=== PATIENT | male | born 1955 | race Caucasian/White ===

== ENCOUNTER → 2021-10-10 18:47 | Outpatient (CLI) | payer MEDICARE, SELFPAY ==
--- NOTE | 2021-10-10 18:49 | DI.RAD.S_ITS ---
PROCEDURE: XR SHOULDER RT MIN 2V INDICATIONS: injury to shoulder TECHNIQUE: 3 views of the shoulder were acquired. COMPARISON: None. FINDINGS: Bones: There is anterior dislocation of the right glenohumeral joint. There is a suspected Hill-Sachs lesion of the humeral head. There is mild acromioclavicular joint degeneration. No suspicious bony lesions. Visualized ribs appear intact. Soft tissues: No suspicious soft tissue calcifications. IMPRESSION: 1. Anterior dislocation of the right glenohumeral joint. 2. Suspected Hill-Sachs impaction fracture of the humeral head. Dictated by: Maxi Montano M.D. on 10/10/2021 at 19:22 Approved by: Maxi Montano M.D. on 10/10/2021 at 19:23
== END ==
PROVIDERS: Referring Provider Nurse Practitioner Family; Visit Provider Nurse Practitioner Family
DX: S43.014A Anterior dislocation of right humerus, initial encounter (principal); X58.XXXA Exposure to other specified factors, initial encounter
CPT/HCPCS: 73030

== ENCOUNTER 2021-10-10 19:13 | Observation (INO) | payer MEDICARE, SELFPAY ==
[2021-10-10 19:25] VITALS: BP 139/84; PULSE 85; RESP 17; TEMP 36.6; O2SAT 97; BMI 29.0
--- NOTE | 2021-10-10 22:21 | ED_ITS ---
HPI - General Adult General Chief complaint: Extremity Injury, Upper Stated complaint: Dislocated shoulder Time Seen by Provider: 10/10/21 20:27 Source: patient Mode of arrival: Ambulatory History of Present Illness HPI narrative: Patient is a 66-year-old male who was sent to the emergency department after having an outpatient x-ray performed of his right shoulder. Patient went to the walk-in clinic today for evaluation of his right shoulder. He states that approximately 4 months ago he fell in the kitchen of his father's house. He felt like he dislocated his shoulder. For an unknown reason he did not seek help over the past 4 months until today when he decided to come and get it evaluated. He went to the walk-in clinic. Had x-rays performed. It does show a dislocation. Was sent to the emergency department for further evaluation. He states that over the past 4 months he either has not moved his shoulder or has had extreme discomfort with movement. He reports no elbow pain. No wrist pain. Related Data Previous Rx's Medication Instructions Recorded oxycodone 5 mg capsule 5 mg PO Q6H PRN #20 cap 10/11/21 Allergies Allergy/AdvReac Type Severity Reaction Status Date / Time No Known Drug Allergies Allergy Unverified 10/10/21 18:34 Review of Systems Musculoskeletal Musculoskeletal: Reports system reviewed and no additional complaints, except as documented and Reports as per HPI Integumentary/Breasts Skin/Breast: Reports system reviewed and no additional complaints, except as do cumented and Reports as per HPI Neurologic Neurologic: Reports system reviewed and no additional complaints, except as documented and Reports as per HPI Hematologic/Lymphatic On Anticoagulants: No Patient History Medical History Patient denies medical problems Social History Smoking Status: Former smoker Smoking Status: Former smoker alcohol intake frequency: a few times a month Substance Use Type: does not use Exam Initial Vital Signs Initial Vital Signs: Vital Signs Temperature 97.9 F 10/10/21 19:25 Pulse Rate 85 10/10/21 19:25 Respiratory Rate 17 10/10/21 19:25 Blood Pressure 139/84 10/10/21 19:25 Pulse Oximetry 97 10/10/21 19:25 HENMT Head: normal to inspection and normocephalic Resp Effort & Inspection: normal respiratory effort Cardio Rate: regular rate Pulses: radial pulses present on the right Skin General: no rashes or lesions noted Neuro Other: Sensation was intact to light touch over the deltoid on the right. No sensation deficits to light touch throughout the rest of his right upper extremity Extrem Other: His right wrist and right elbow unremarkable. Patient has obvious deformity to his right shoulder. Course Orders Ordered: ED Orders 10/10/21 22:30 Basic Metabolic Panel Stat COVID19 -Nasal swab/Pre-Proc Stat Complete Blood Count AUTO DIFF Stat Hydromorphone HCl (Hydromorphone 2 Mg Inj) 0 mg IV Q5M PRN PRN Reason: Pain, Severe (7-10) Lactated Ringer's (Lactated Ringers) 1,000 mls @ 42 mls/hr IV CONT STEVE Last Admin: 10/10/21 23:30 Dose: 42 mls/hr Documented by: NELI Discontinued Medications Acetaminophen (Acetaminophen 325 Mg Tablet) 650 mg PO PACUNOW ONE Stop: 10/10/21 22:38 Last Admin: 10/11/21 00:21 Dose: 650 mg Documented by: NELI Ketorolac Tromethamine (Ketorolac 30 Mg/Ml Vial) 30 mg IV NOW ONE Stop: 10/11/21 00:32 Ketorolac Tromethamine (Ketorolac 30 Mg/Ml Vial) 15 mg IV NOW ONE Stop: 10/11/21 00:33 Last Admin: 10/11/21 00:35 Dose: 15 mg Documented by: NELI Oxycodone HCl (Oxycodone Ir 5 Mg Tablet) 5 mg PO PACUNOW PRN PRN Reason: Pain, Moderate (4-6) Last Admin: 10/11/21 01:12 Dose: 5 mg Documented by: Admin: 10/11/21 00:22 Dose: 5 mg Documented by: NELI Vital Signs Vital signs: Vital Signs - 8 hr 10/10/21 19:25 Temperature 97.9 F Pulse Rate 85 Respiratory Rate 17 Blood Pressure 139/84 Pulse Oximetry 97 Medical Decision Making Lab Data Lab results reviewed: Yes I reviewed the patient's lab results. Result diagrams: 10/10/21 22:30 10/10/21 22:30 Labs: Lab Results 10/10/21 10/10/21 10/10/21 Range/Units 22:30 22:30 22:30 WBC 5.6 (4.5-11.0) X10^3/uL RBC 5.21 (4.5-5.9) X10^6/uL Hgb 14.1 (13.5-17.5) g/dL Hct 41.5 (41-53) % MCV 79.8 L (80-100) fL MCH 27.0 (26-34) PG MCHC 33.9 (30-36) % RDW 14.3 (11.6-14.8) % Plt Count 52 L (150-400) X10^3/uL Neut % (Auto) 49.2 L (50-75) % Lymph % (Auto) 35.2 (25-40) % [place] % (Auto) 9.8 (3-14) % Eos % (Auto) 4.7 H (2-4) % Baso % (Auto) 1.1 (0-2) % Neut # (Auto) 2700 (5014-7900) /uL Lymph # (Auto) 2000 (3831-7620) /uL [place] # (Auto) 500 (0-900) /uL Eos # (Auto) 300 (0-450) /uL Baso # (Auto) 100 (0-100) /uL Sodium 140 (137-145) mmol/L Potassium 4.1 (3.4-5.1) mmol/L Chloride 103 (98-107) mmol/L Carbon Dioxide 34 H (22-32) mmol/L BUN 17 (9-20) mg/dL Creatinine 1.16 (0.66-1.25) mg/dL Estimated GFR > 60.0 (>60) mL/min BUN/Creatinine Ratio 14.7 (6-22) Glucose 102 (80-110) mg/dL Calcium 9.3 (8.4-10.2) mg/dL SARS-CoV-2 (PCR) Negative (Negative) Imaging Data Extremity x-ray #1: Radiologist's Impression: [address] [address] XRay Report Signed Patient: Catarino Tirado II MR#: [id number] : 1955 Acct:[id number] Age/Sex: 66 / M Date of Service: 10/10/21 Loc: RAD Accession Number: [id number] ?? Procedure: XR shoulder RT min 2V Ordering Provider: Ciera Christian PROCEDURE:? XR SHOULDER RT MIN 2V ? INDICATIONS:? injury to shoulder ? TECHNIQUE:? 3 views of the shoulder were acquired.? ? COMPARISON:? None. ? FINDINGS:? ? Bones:? There is anterior dislocation of the right glenohumeral joint.? There is a suspected Hill-Sachs lesion of the humeral head.? There is mild acromioclav icular joint degeneration.? No suspicious bony lesions.? Visualized ribs appear intact.? ? Soft tissues:? No suspicious soft tissue calcifications.? ? IMPRESSION:? ? 1. Anterior dislocation of the right glenohumeral joint. ? 2. Suspected Hill-Sachs impaction fracture of the humeral head.? ? ? Dictated by: Maxi Montano M.D. on 10/10/2021 at 19:22 ? ? Approved by: Maxi Montano M.D. on 10/10/2021 at 19:23?? MDM Narrative Medical decision making narrative: The x-ray included in this note is for reference purposes only. It was ordered as an outpatient by another provider. Patient has a right shoulder dislocation clinically and also by the x-ray. He is neurovascularly intact. Has sensation over his deltoid superior portion of his right shoulder. It appears that his shoulder has been dislocated for approximately 4 months. Is unsure why he did not seek medical attention until today. I did discuss the case with Dr. Jackson on-call for Orthopedics who came to evaluate the patient in the emergency department. The plan will be is to admit for closed reduction in the operating room. Patient expressed understanding and agreement. Discharge Plan Departure Patient Disposition: Admitted as Observation Clinical Impression: Anterior shoulder dislocation Admit Date/Time: 10/10/21 22:46 Admit Provider: Faith Jackson
[2021-10-10 22:42] LABS: Add Manual Diff / Slide Review NO; Basophils Absolute Auto 100 /uL (0-100); Basophils Percent Auto 1.1 % (0-2); Eosinophils Absolute Auto 300 /uL (0-450); Eosinophils Percent Auto 4.7 % (2-4); Hematocrit 41.5 % (41-53); Hemoglobin 14.1 g/dL (13.5-17.5); Lymphocytes Absolute Auto 2000 /uL (1100-4500); Lymphocytes Percent Auto 35.2 % (25-40); Mean Corpuscular HGB Conc 33.9 % (30-36); Mean Corpuscular Volume 79.8 fL (80-100); Monocytes Absolute Auto 500 /uL (0-900); Monocytes Percent Auto 9.8 % (3-14); Neutrophils Absolute Auto 2700 /uL (1500-7000); Neutrophils Percent Auto 49.2 % (50-75); Platelet Count 52 X10^3/uL (150-400); Red Blood Cell Count 5.21 X10^6/uL (4.5-5.9); Red Cell Distribution Width 14.3 % (11.6-14.8); White Blood Cell Count 5.6 X10^3/uL (4.5-11.0)
[2021-10-10 22:53] LABS: BUN Creatinine Ratio 14.7 (6-22); Blood Urea Nitrogen 17 mg/dL (9-20); Calcium 9.3 mg/dL (8.4-10.2); Carbon Dioxide 34 mmol/L (22-32); Chloride 103 mmol/L (98-107); Estimated Glomerular Filt Rate > 60.0 mL/min (>60); Glucose 102 mg/dL (80-110); HEMOLYSIS < 15 (0-50); Potassium 4.1 mmol/L (3.4-5.1); Sodium 140 mmol/L (137-145)
[2021-10-10 22:55] LABS: COVID19 -Nasal RAPID Negative (Negative)
--- NOTE | 2021-10-10 23:09 | P.HP_ITS ---
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 He said that he slipped in the kitchen in June and injured his right shoulder. He has been having ongoing right shoulder pain and severe dysfunction since then. He thought he might need to have it surgically repaired but he was hoping to avoid surgery and so he is been waiting to see if it would heal spontaneously at home. He notes initially he could barely uses hand at all. He says he has some improved functi on in the right hand but he has severe pain with any attempted range of motion in his right shoulder does note some moderate numbness over his right deltoid and has had difficulty with activities of daily living including being able to write with his hand being able to feed himself and being able to dress himself. He is [id number] and normally likes to row for exercise. His hand and wrist have gotten slightly better but he notes severe impairment of his right shoulder and elbow. He says he is a nonsmoker and he drinks 1 beer a month. Patient History Comment: Surgical history is remarkable for prior hernia repair. MEDICAL HISTORY IS REMARKABLE FOR POSSIBLE COVID INFECTION ABOUT A YEAR AGO HE SAYS HE IS V ACCINATED, has a rash on his right arm which she says has been there for about a year, admits to no meds and no allergies Family & Social History Safety & Behavioral: Feels Safe in Current Yes Environment Tobacco & Substance use: Smoking Status Former smoker alcohol intake frequency a few times a month Substance Use Type does not use Meds Home Medications and Allergies Home Medications Medication Instructions Recorded Confirmed Type No Known Home Medications 10/10/21 10/10/21 History Allergies Allergy/AdvReac Type Severity Reaction Status Date / Time No Known Drug Allergies Allergy Unverified 10/10/21 18:34 Review of Systems Review of Systems Narrative: Denies fevers or chills does not had recent chest pain is not short of breath, he notes he hit his head was was not knocked out at the time of his fall. Note severe dysfunction of the right upper extremity Exam Vital Signs (past 8 hours): - 10/10/21 19:25 Temperature 97.9 F Pulse Rate 85 Respiratory Rate 17 Blood Pressure 139/84 Pulse Oximetry 97 Oxygen Delivery Method Room Air Narrative Exam Narrative: HEENT is unremarkable neck is supple lungs are clear cor regular rate and rhythm abdomen slightly obese but benign examination of the right upper extremity shows obvious deformity of the right shoulder he has some numbness over his right shoulder lateral skin, there is severe atrophy of his right deltoid, sex sternal rotation is-20 can internally rotate to his body there is prominence of his humeral head anteriorly and a gap in the glenohumeral joint, he can fire his finger flexors and extensors wrist flexors and extensors but has restricted range of his elbow and crepitation with any attempted glenohumeral motion Objective Labs Result Diagrams: 10/10/21 22:30 10/10/21 22:30 Labs: Laboratory Results - last 24 hr 10/10/21 10/10/21 10/10/21 22:30 22:30 22:30 WBC 5.6 RBC 5.21 Hgb 14.1 Hct 41.5 MCV 79.8 L MCH 27.0 MCHC 33.9 RDW 14.3 Plt Count 52 L Neut % (Auto) 49.2 L Lymph % (Auto) 35.2 [place] % (Auto) 9.8 Eos % (Auto) 4.7 H Baso % (Auto) 1.1 Neut # (Auto) 2700 Lymph # (Auto) 2000 [place] # (Auto) 500 Eos # (Auto) 300 Baso # (Auto) 100 Sodium 140 Potassium 4.1 Chloride 103 Carbon Dioxide 34 H BUN 17 Creatinine 1.16 Estimated GFR > 60.0 BUN/Creatinine Ratio 14.7 Glucose 102 Calcium 9.3 SARS-CoV-2 (PCR) Negative x-rays show an anterior right shoulder dislocation, no obvious fracture Assessment & Plan Assessment and plan (1) Anterior shoulder dislocation: Status: Acute Plan He has a chronic right anterior shoulder dislocation. I have recommended attempted closed reduction. Shoulder has been dislocated for about 4 months. I did explain to him in detail that this may not be reducible closed. We discussed that he had been neglect full of his care and he was uncertain why other than apprehension about pain and healthcare. I specifically explained to him in detail that better care is an acute reduction of a dislocated shoulder and the longstanding dislocation does result in impaired vascularity of the humeral head as well as potential permanent damage to the articular cartilage. He may also have substantial scar in his glenohumeral joint which may make closed reduction extremely difficult. Our plan is for an attempted closed reduction today. If that is not successful we will schedule an open reduction in the future and may consider additional workup with an MRI scan to further define his anatomy and potential blocking tissue or structures. Clinically he has profound atrophy of his anterior deltoid. He may have an underlying rotator cuff tear. Time Spent With Patient Critical Care time: I spent a total of [] minutes of critical care time on this patient's care today; this time is exclusive of procedural time.
--- NOTE | 2021-10-10 23:23 | P.OP_ITS ---
Operative Date/Time/Diagnoses Date of procedure: 10/10/21 Time of procedure: 23:35 Pre-op diagnosis: Chronic right shoulder anterior dislocation. Post-op diagnosis: same Procedure & Clinicians Procedure: Closed reduction right shoulder Same procedure as scheduled: Yes Indications: This is a 66-year-old gentleman who has about a four-month history of a right anterior shoulder dislocation. He has had no treatment today. He is brought to the operating room for attempted closed reduction. Limits of the procedure options risks benefits and complications were discussed in detail. Surgeon: Faith Jackson Anesthesia Type: General Operative Notes Findings: With a meticulous reduction maneuver glenohumeral alignment was improved. There was not a definitive clunk or pop consistent with the patient having a chronic dislocation. Specimen(s): none sent Blood products transfused: none Procedure in detail: Patient was brought to the operating room. He underwent induction of a general anesthesia. A sheet was placed around his axilla for counter traction. A time- out was performed. Combination of longitudinal traction and meticulously internal and external rotation as well as gentle flexion and extension was performed. The humeral head was also annually manipulated up and pushed back in posteriorly into the glenohumeral joint. AP and and attempted axillary view with the C-arm was performed. Gets his substantial improvement in the AP positioning of the glenohumeral joint. There was not a definitive clunk co nsistent with a reduction but it was felt that he likely had significant soft tissue in his glenoid fossa as he has been dislocated for 4 months. Did multiple reduction maneuvers in order to achieve optimum glenohumeral alignment. It was significantly improved from his pre reduction procedure but I do think that we should follow-up with additional imaging including an MRI scan of his shoulder. He tolerated the procedure well. Was placed in a sling. I would avoid external rotation postoperatively. Complications: none Post-operative Condition: stable Disposition: same day surgery Plan for aftercare: Okay to begin range of motion right shoulder no external rotation greater than 30, sling. Follow up next week with repeat x-rays and a plan to obtain an MRI scan to further define soft tissue injury
[2021-10-10] MEDS: LACTATED RINGERS 1,000 ML 42 ML IV (23:30)
--- NOTE | 2021-10-10 23:53 | SUR.PHASEI ---
[preop-patient being prepared for OR. Plan per Dr Jackson- to discharge home. Per patient -no ride. states he can walk when told he cant drive tonight due to anesthesia. 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 Discussed couldnt discharge ambulatory post anesthesia. appears to be ok with taxi home.
[2021-10-11] VITALS (7 sets, daily range): BP systolic 157–173; BP diastolic 89–101; PULSE 65–78; RESP 12–18; TEMP 36.4–36.6; O2SAT 96–99
--- NOTE | 2021-10-11 | DI.RAD.S_ITS ---
PROCEDURE: XR SHOULDER RT MIN 2V INDICATIONS: CLOSED REDUCTION TECHNIQUE: 2 intraoperative views of the shoulder were acquired. COMPARISON: [facility], CR, XR SHOULDER RT MIN 2V, 10/11/2021, 0:22. FINDINGS: Bones: Humeral head has been relocated. Probable Hill-Sachs deformity. Soft tissues: No suspicious soft tissue calcifications. IMPRESSION: 1. Relocation of humeral head. 2. Probable Hill-Sachs fracture of the humeral head. Dictated by: Fred Frias M.D. on 10/11/2021 at 0:47 Approved by: Fred Frias M.D. on 10/11/2021 at 0:47
--- NOTE | 2021-10-11 | DI.RAD.S_ITS ---
PROCEDURE: XR SHOULDER RT MIN 2V INDICATIONS: POST OPERATIVE TECHNIQUE: 2 views of the shoulder were acquired. COMPARISON: [facility], CR, XR SHOULDER RT MIN 2V, 10/10/2021, 18:46. FINDINGS: Bones: Indentation of the humeral head. Humeral head has been relocated. No suspicious bony lesions. Visualized ribs appear intact. Mild periarticular osteophyte formation at the acromioclavicular and glenohumeral joints. Soft tissues: No suspicious soft tissue calcifications. IMPRESSION: Relocation of the humeral head. Probable Hill-Sachs deformity of the humeral head. Dictated by: Fred Frias M.D. on 10/11/2021 at 0:46 Approved by: Fred Frias M.D. on 10/11/2021 at 0:47
[2021-10-11] MEDS: ACETAMINOPHEN 325 MG TABLET 650 MG PO (00:21)
[2021-10-11] MEDS: OXYCODONE IR 5 MG TABLET PO ×2 (00:22→01:12)
--- NOTE | 2021-10-11 00:22 | SUR.OPER ---
Supine on padded OR bed, head on pillow, left arm secured on padded arm boards at <90 degrees abduction, right arm in control of the Surgeon. Legs uncrossed, safety belt at thigh, tape over blanket over lower legs.
--- NOTE | 2021-10-11 00:23 | SUR.OPER ---
Patients' glasses, black watch, hat, pants, tank top, shirt, shoes, cell phone placed in patients belongings bag.
[2021-10-11] MEDS: KETOROLAC 30 MG/ML VIAL 15 MG IV (00:35)
--- NOTE | 2021-10-11 02:37 | SUR.PHASEII ---
10/11/21-0115am. completed home instructions. discussed meds given and second oxycodone given-would get him to 7am if used time given x 6 hours. patient aware no pharmacy open til 9-10 am, but ok with this. did give information that there was a 24 hour pharmacy in [place] if family could get him there with Rx. Declined any out of area pharmacy choices and states will be fine till local pharmacys open up. 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 Assisted patinet with clothing/ dressing. iv out. 125-no cab service available after 1am . [employer] called for possible alternatives. patient still declined family availablilty or friends to pick hiim up. 135-patient aware no available resources ,cant walk or drive due anesthesia, plus cant just leave in [facility] til family availabilty. patient now becoming more receptive to information and need to call family. Making various calls x 8 looking for family members to pick him up. 0155-family member called back, will be here in 10 minutes. 0210-pain down to 5/10 and tolerable. Sling on . csm remains wnl rue. no urge to void. dressed, with all belongings . Discharged to sister, Melinda's , care and car. Sister made aware patient cant drive x 24 hours minimum-needs to check with Dr Jackson before driving a car. and that he has an Rx that needs filled later this am for his pain medications. patient verbalized understanding. patient reminded to follow up wednesday with Dr Dozier office for followup apppt. -or if any problems/questions/concerns arise once home.
== END 2021-10-11 02:15 | disposition home or self-care (01) ==
LOC: ED 22:43 → AC 22:48
PROVIDERS: Admitting Provider Orthopaedic Surgery; Emergency Provider Emergency Medicine; Referring Provider Emergency Medicine; Visit Provider Orthopaedic Surgery
PROC: (CPT 23655; principal; 2021-10-10 23:00)
DX: S43.014A Anterior dislocation of right humerus, initial encounter (principal); W19.XXXA Unspecified fall, initial encounter; X58.XXXA Exposure to other specified factors, initial encounter
CPT/HCPCS: 23655; 36415; 73030; 76000; 80048; 85025; 87635; 96374; 99283; C9803; G0378; J1885; J2405; J2704; J3010